=== PATIENT | male | born 1955 | race Caucasian/White ===

== ENCOUNTER → 2017-09-15 | Outpatient (CLI) | payer BC, OTHER | LOC: GMAM 14:49 | PROVIDERS: ATTEND Family Medicine | DX: R31.21 Asymptomatic microscopic hematuria (principal) ==

== ENCOUNTER → 2019-03-17 | Outpatient (CLI) | payer BC | LOC: SL 18:57 | PROVIDERS: ATTEND Family Medicine | DX: G47.10 Hypersomnia, unspecified (principal); R06.83 Snoring; G47.00 Insomnia, unspecified ==

== ENCOUNTER → 2019-11-22 | Outpatient (CLI) | payer BC | LOC: GMAM 12:03 | PROVIDERS: ATTEND Family Medicine | DX: R97.20 Elevated prostate specific antigen [PSA] (principal); E78.2 Mixed hyperlipidemia ==